=== PATIENT | female | born 1975 | race Caucasian/White ===

== ENCOUNTER 2020-05-31 12:28 | Outpatient (CLI) | payer OTHER ==
--- NOTE | 2020-05-31 12:51 | RAD ---
EXAM: 4 views of the right knee HISTORY: Knee pain COMPARISON: None FINDINGS: No knee effusion is seen. There is no evidence of acute fracture or dislocation. No signifi cant degenerative changes are seen. No soft tissue swelling is present. IMPRESSION: No evidence of acute osseous abnormality.
== END 2020-05-31 12:29 | disposition home or self-care (01) ==
LOC: NAV RAD 12:28
PROVIDERS: ATTEND Family Medicine
DX: M25.561 Pain in right knee (principal)

== ENCOUNTER 2020-10-12 11:55 | Outpatient (CLI) | payer OTHER | END 2020-10-12 11:56 | disposition home or self-care (01) | LOC: NAV RAD 11:55 | PROVIDERS: ATTEND Family Medicine | DX: S69.91XA Unspecified injury of right wrist, hand and finger(s), initial encounter (principal); M79.89 Other specified soft tissue disorders ==